=== PATIENT | male | born 1965 | race Caucasian/White ===

== ENCOUNTER → 2017-03-22 | Outpatient (CLI) | payer OTHER ==
[~2017-03-22] MED LIST: CHOL1000 PO; CHOL1TAB42 PO; CHOL20009 PO; DOLU1TAB PO; EFAVTAB PO; EMTR1TAB10 PO; ERGO1CAP35 PO; ERGO500037 PO; SIMV40TA2 PO
[2017-03-22 13:16] LABS: BASO % 0.3 %; BASO ABS # 0.03 K/uL (0-0.2); COMPLETE YES; EOS % 0.9 %; HEMATOCRIT 50.2 % (42-52); IG% 0.2 %; LYMPH % 14.6 %; LYMPH ABS # 1.32 K/uL (1.2-3.4); MEAN CELL VOLUME 97.7 fL (80-100); MEAN CORPUSCULAR HEMOGLOBIN 32.9 pg (25-34); MEAN CORPUSCULAR HGB CONC 33.7 g/dl (32-36); MEAN PLATELET VOLUME 10.3 fL (7.4-10.4); MONO % 6.9 %; NEUT % 77.1 %; PLATELET COUNT 217 K/uL (130-400); RED BLOOD COUNT 5.14 M/uL (4.7-6.1); WHITE BLOOD COUNT 9.05 K/uL (4.8-10.8)
[2017-03-22 13:33] LABS: BLOOD UREA NITROGEN 13 mg/dl (7-18); BUN/CREATININE RATIO 15.5 (10-20); CARBON DIOXIDE 28 mmol/L (21-32); CHLORIDE 107 mmol/L (98-107); CREATININE 0.85 mg/dl (0.60-1.40); GLUCOSE 92 mg/dl (70-99); SODIUM 142 mmol/L (136-145)
[2017-03-22 13:35] LABS: ALB/GLOB RATIO 1.1 (0.9-2); ALKALINE PHOSPHATASE 80 U/L (45-117); ALT/SGPT 26 U/L (12-78); AST/SGOT 16 U/L (15-37)
== END | disposition home or self-care (01) ==
LOC: C.LAB 11:08
PROVIDERS: ATTEND Internal Medicine Infectious Disease
DX: B20 Human immunodeficiency virus [HIV] disease (principal)

== ENCOUNTER → 2017-06-08 | Day surgery (SDC) | payer OTHER ==
[2017-05-30 09:43] VITALS: BMI 25.0
[~2017-06-08] VITALS: Ht 188 cm; Wt 90.0 kg
[~2017-06-08] MED LIST changes: -CHOL1TAB42 PO; -CHOL20009 PO; -EFAVTAB PO; -ERGO1CAP35 PO; +LIDOCAINE HCL 2% 2 ML VIAL (20MG/ML) ONE; +PROPOFOL IV EMULSION 10 MG/ML 20 ML VIAL IV ONE; +SODIUM CHLORIDE 0.9% 500ML 500 ML IV ONE
[2017-06-08 09:45] VITALS: Ht 188 cm; Wt 90.0 kg
--- NOTE | 2017-06-08 10:07 | Endo History and Physical ---
History & Physical Date of Service: Jun 08, 2017. Chief Complaint: Screening Referring Physician: Dr. Campbell History of Present Illness 52 yo CM who presents for screening colonoscopy. Past Surgical History Hx Cardiac Surgery: No Hx Internal Defibrillator: No Hx Pacemaker: No Hx Abdominal Surgery: Yes (HERNIA) Hx of Implantable Prosthesis: No Hx Post-Op Nausea and Vomiting: No Hx Cancer Surgery: No Hx Thoracic Surgery: No Hx Orthopedic: No Hx Urinary Tract Surgery: No Family History Colon CA Social History Smoking Status: Current Every Day Smoker Hx Substance Use: No (MARIJUANNA IN PAST) Hx Alcohol Use: Yes (3 BEER A DAY) Allergies Coded Allergies: No Known Allergies (Verified , 06/08/17) Current Medications Reported Home Medications Medications Dose Route/Sig Max Daily Dose Days Date Category Dose Instructions Vitamin D3 (Cholecalciferol) 1,000 Unit Tab 5,000 Units PO QPM 90 05/30/17 Reported Descovy 200-25 mg (Emtricitabine-Tenofovir Alafen) 1 Tab Tab 1 Tab PO QPM 05/30/17 Reported Tivicay (Dolutegravir Sodium) 50 Mg Tab 50 Mg PO QPM 05/30/17 Reported Vitamin D 67914 Unit (Ergocalciferol) 50,000 Unit Cap 50,000 Unit PO WK 05/30/17 Reported SUNDAYS Zocor (Simvastatin) 40 Mg Tab 40 Mg PO QPM 03/19/11 Reported Vital Signs Weight (Kilograms): 90.00 Height (Feet): 6 Height (Inches): 2 Date Time Temp Pulse Resp B/P (MAP) Pulse Ox O2 Delivery O2 Flow Rate FiO2 06/08/17 09:52 36.7 71 18 121/83 (96) 96 Room Air Physical Exam General Appearance: WD/WN, no apparent distress Respiratory/Chest: Auscultation: breath sounds normal Cardiovascular: Heart Auscultation: RRR Abdomen: Bowel Sounds: normal Inspection & Palpation: soft, non-distended, no tenderness, guarding & rebound Assessment and Plan Assessment: 52 yo CM who presents for screening colonoscopy. Plan: Proceed with colonoscopy.
--- NOTE | 2017-06-08 10:32 | GI REPORT ---
Procedure Date: 06/08/2017 10:15 AM Procedure: Colonoscopy Indications: Screening for colorectal malignant neoplasm Medicines: Monitored Anesthesia Care Complications: No immediate complications. Estimated Blood Loss: Estimated blood loss: none. Procedure: Pre-Anesthesia Assessment: - Prior to the procedure, a History and Physical was performed, and patient medications and allergies were reviewed. The patient's tolerance of previous anesthesia was also reviewed. The risks and benefits of the procedure and the sedation options and risks were discussed with the patient. All questions were answered, and informed consent was obtained. Prior Anticoagulants: The patient has taken no previous anticoagulant or antiplatelet agents. ASA Grade Assessment: III - A patient with severe systemic disease. After reviewing the risks and benefits, the patient was deemed in satisfactory condition to undergo the procedure. After I obtained informed consent, the scope was passed under direct vision. Throughout the procedure, the patient's blood pressure, pulse, and oxygen saturations were monitored continuously. The On-site loaner was introduced through the anus and advanced to the terminal ileum. The colonoscopy was performed without difficulty. The patient tolerated the procedure well. The quality of the bowel preparation was good. The terminal ileum, ileocecal valve, appendiceal orifice, and rectum were photographed. Findings: A 4 mm polyp was found in the sigmoid colon. The polyp was sessile. The polyp was removed with a hot snare. Resection and retrieval were complete. Non-bleeding internal hemorrhoids were found during retroflexion. The hemorrhoids were small. Impression: - One 4 mm polyp in the sigmoid colon, removed with a hot snare. Resected and retrieved. - Non-bleeding internal hemorrhoids. Recommendation: - Resume previous diet. - Continue present medications. - Repeat colonoscopy for surveillance based on pathology results. - Return to primary care physician as previously scheduled. Jeffrey Abreu DO 06/08/2017 10:31:55 AM This report has been signed electronically. Note Initiated On: 06/08/2017 10:15 AM I attest to the content of the Intraoperative Record and orders documented therein, exceptions below
--- NOTE | 2017-06-08 10:33 | Discharge Instructions ---
Endoscopy Patient Instructions Date / Procedure(s) Performed Jun 08, 2017. Colonoscopy Allergy Information Coded Allergies: No Known Allergies (Verified , 06/08/17) Discharge Date / Findings Jun 08, 2017. Colon polyp Internal hemorrhoids Medication Instructions OK to resume all medications today as prescribed Reported Home Medications Medications Dose Route/Sig Max Daily Dose Days Date Category Dose Instructions Vitamin D3 (Cholecalciferol) 1,000 Unit Tab 5,000 Units PO QPM 90 05/30/17 Reported Descovy 200-25 mg (Emtricitabine-Tenofovir Alafen) 1 Tab Tab 1 Tab PO QPM 05/30/17 Reported Tivicay (Dolutegravir Sodium) 50 Mg Tab 50 Mg PO QPM 05/30/17 Reported Vitamin D 32693 Unit (Ergocalciferol) 50,000 Unit Cap 50,000 Unit PO WK 05/30/17 Reported SUNDAYS Zocor (Simvastatin) 40 Mg Tab 40 Mg PO QPM 03/19/11 Reported Provider Instructions Activity Restrictions - No exercising or heavy lifting for 24 hours. - Do not drink alcohol the day of the procedure. - Do not drive a car or operate machinery until the day after the procedure. - Do not make any important decisions or sign important papers in 24 hours after the procedure. Following Day: - Return to full activity which may include returning to work/school. Diet Start your diet with liquids and light foods (jello, soup, juice, toast). Then eat your usual diet if not nauseated. Treatment For Common After Affects For mild abdominal pain, bloating, or excessive gas: - Rest - Eat lightly - Lie on right side Follow-Up Information Follow-up with Dr. Campbell as scheduled Anesthesia Information What You Should Know You have had a procedure that required some medicine to reduce anxiety and discomfort. This treatment is called moderate sedation. After receiving the treatment, you may be sleepy, but you will be able to breathe on your own. The effects of the treatment may last for several hours. Follow these instructions along with Activity/Diet recommendations noted above: * Do NOT do anything where dizziness or clumsiness would be dangerous. * Rest quietly at home today, then you can be up and about tomorrow. * Have a responsible person stay with you the rest of today. * You may have had an I.V. today. If so, you may take the dressing off later today. Recommendations Call your doctor if: * Trouble breathing * Continuous vomiting for more than 24 hours * Temperature above 101 degrees * Severe abdominal pain or bloating * Pain not relieved by pain medicine ordered * There is increased drainage or redness from any incision * A large amount of rectal bleeding greater than 2-3 tablespoons. (If you had a polyp/s removed or have hemorrhoids, a small amount of blood - from the rectum is to be expected.) * You have any unanswered questions or concerns. IN THE EVENT OF A SERIOUS EMERGENCY, GO TO THE NEAREST EMERGENCY ROOM Your discharge instructions were prepared by provider Jeffrey Abreu. Patient Instructions Signature Page Alan Haywood Patient (or Guardian) Signature/Date: I have read and understand the instructions given to me by my caregivers. Caregiver/RN/Doctor Signature/Date: The above-named patient and/or guardian has received patient instructions on this date. + Original Patient Signature Page (only) stays with chart. Please make copy for patient.
--- NOTE | 2017-06-08 10:52 | Anesthesiology Progress Note ---
Anesthesia Post Op Note Date & Time Jun 08, 2017 at 10:52 Vital Signs Pain Intensity: 0 Vital Signs Past 12 Hours Date Time Temp Pulse Resp B/P (MAP) Pulse Ox O2 Delivery O2 Flow Rate FiO2 06/08/17 10:34 76 18 100/66 (77) 96 Room Air 06/08/17 09:52 36.7 71 18 121/83 (96) 96 Room Air Notes Mental Status: alert / awake / arousable, participated in evaluation Pt Amnestic to Procedure: Yes Nausea / Vomiting: adequately controlled Pain: adequately controlled Airway Patency, RR, SpO2: stable & adequate BP & HR: stable & adequate Hydration State: stable & adequate Anesthetic Complications: no major complications apparent
[2017-06-08 11:04] VITALS: BP 124/98; PULSE 70; O2SAT 99
== END | disposition home or self-care (01) ==
LOC: C.GI 09:22
PROVIDERS: ATTEND Internal Medicine
DX: Z12.11 Encounter for screening for malignant neoplasm of colon (principal); D12.5 Benign neoplasm of sigmoid colon; K64.8 Other hemorrhoids; F17.210 Nicotine dependence, cigarettes, uncomplicated; Z80.0 Family history of malignant neoplasm of digestive organs; Z79.899 Other long term (current) drug therapy

== ENCOUNTER → 2017-07-07 | Outpatient (CLI) | payer OTHER ==
[~2017-07-07] MED LIST changes: -LIDOCAINE HCL 2% 2 ML VIAL (20MG/ML) ONE; -PROPOFOL IV EMULSION 10 MG/ML 20 ML VIAL IV ONE; -SODIUM CHLORIDE 0.9% 500ML 500 ML IV ONE
== END | disposition home or self-care (01) ==
LOC: C.LAB 01:25
DX: Z02.83 Encounter for blood-alcohol and blood-drug test (principal)

== ENCOUNTER → 2017-08-05 | Outpatient (CLI) | payer OTHER ==
[2017-08-05 09:34] LABS: BASO % 0.5 %; BASO ABS # 0.03 K/uL (0-0.2); COMPLETE YES; EOS % 1.9 %; HEMATOCRIT 47.7 % (42-52); IG% 0.2 %; LYMPH % 38.4 %; LYMPH ABS # 2.38 K/uL (1.2-3.4); MEAN CELL VOLUME 97.1 fL (80-100); MEAN CORPUSCULAR HEMOGLOBIN 31.8 pg (25-34); MEAN CORPUSCULAR HGB CONC 32.7 g/dl (32-36); MEAN PLATELET VOLUME 10.1 fL (7.4-10.4); MONO % 7.4 %; NEUT % 51.6 %; PLATELET COUNT 226 K/uL (130-400); RED BLOOD COUNT 4.91 M/uL (4.7-6.1)
[2017-08-05 10:00] LABS: ALT/SGPT 29 U/L (12-78); AST/SGOT 19 U/L (15-37); BLOOD UREA NITROGEN 17 mg/dl (7-18); BUN/CREATININE RATIO 18.2 (10-20); CALCIUM 9.3 mg/dl (8.5-10.1); CARBON DIOXIDE 30 mmol/L (21-32); CHLORIDE 108 mmol/L (98-107); CREATININE 0.94 mg/dl (0.60-1.40); GLUCOSE 100 mg/dl (70-99); POTASSIUM 4.1 mmol/L (3.5-5.1); SODIUM 141 mmol/L (136-145)
[2017-08-05 10:04] LABS: ALB/GLOB RATIO 1.1 (0.9-2); ALKALINE PHOSPHATASE 77 U/L (45-117); CHOLESTEROL 234 mg/dl (0-200); CHOLESTEROL/HDL RATIO 3.4; HDL CHOLESTEROL 68 mg/dl; LDL CHOLESTEROL CALCULATED 137 mg/dl; TRIGLYCERIDES 147 mg/dl (0-150); VERY LOW DENSITY LIPOPROT CALC 29 mg/dl
[2017-08-09 16:33] LABS: LSP % CELLS ANALYZED CD4 49 % (30-61); LSP ABSOLUTE CT CD4 988 cells/uL (490-1740); LSP LYMPHOCYTES ABSOLUTE 2013 cells/uL (850-3900)
== END | disposition home or self-care (01) ==
LOC: C.LAB 08:06
PROVIDERS: ATTEND Internal Medicine Infectious Disease
DX: B20 Human immunodeficiency virus [HIV] disease (principal)

== ENCOUNTER → 2018-06-16 | Outpatient (CLI) | payer OTHER ==
--- NOTE | 2018-06-16 14:37 | DIAGNOSTIC IMAGING REPORT ---
L EXTREMITY NONVASCULAR LIMITED HISTORY: 53 years-old Male R19.09 Inguinal nodule- Please review ultrasound left groin/imag acute swelling of the left inguinal region. COMPARISON: Abdominal ultrasound 10/26/2016 TECHNIQUE: Multiple real-time sonographic images of the left inguinal tissues were obtained assessing grayscale appearance and color flow FINDINGS: Within the left inguinal tissues, several left inguinal lymph nodes are seen, largest of which measures up to 3.9 x 2.7 x 1.6 cm and 5.2 x 1.3 x 1.7 cm. Incidental note is made of a small fat-containing reducible left inguinal hernia. IMPRESSION: 1. Several mildly enlarged left inguinal lymph nodes of unknown etiology. Correlation clinically is recommended. If lymph nodes do not resolve or increase in size, further evaluation with tissue sampling recommended. 2. Small fat-containing left inguinal hernia. The above report was generated using voice recognition software. It may contain grammatical, syntax or spelling errors. Electronically signed by: Mike Macedo M.D. 06/16/2018 2:36 PM Dictated Date/Time: 06/16/2018 2:26 PM
== END | disposition home or self-care (01) ==
LOC: C.ULTR 14:00
PROVIDERS: ATTEND Internal Medicine
DX: K40.90 Unilateral inguinal hernia, without obstruction or gangrene, not specified as recurrent (principal); R59.1 Generalized enlarged lymph nodes

== ENCOUNTER → 2018-07-18 | Outpatient (CLI) | payer OTHER ==
[~2018-07-18] MED LIST changes: -CHOL1000 PO; +CIPR1TAB11 PO; -DOLU1TAB PO; +DOLU25TA PO; -ERGO500037 PO; -SIMV40TA2 PO
--- NOTE | 2018-07-18 13:54 | DIAGNOSTIC IMAGING REPORT ---
LEFT INGUINAL ULTRASOUND CLINICAL HISTORY: R19.09 inguinal adenopathy COMPARISON STUDY: 06/16/2018 FINDINGS: Enlarged left inguinal lymph nodes are again visualized. The 2 largest measure 27 x 40 x 9 mm, and 57 x 26 x 11 mm. The previously described left inguinal hernia was not identified on the current study. IMPRESSION: Mild left inguinal lymphadenopathy, similar to the preceding examination Electronically signed by: Jasson Adames M.D. 07/18/2018 1:53 PM Dictated Date/Time: 07/18/2018 1:47 PM
== END | disposition home or self-care (01) ==
LOC: C.ULTR 13:04
PROVIDERS: ATTEND Internal Medicine
DX: R19.09 Other intra-abdominal and pelvic swelling, mass and lump (principal)